=== PATIENT | female | born 1990 | race Caucasian/White ===

== ENCOUNTER 2019-07-20 09:18 | Day surgery (SDC) | payer OTHER ==
[~2019-07-20] VITALS: Ht 170.2 cm; Wt 103.9 kg
[2019-07-20 10:38] VITALS: BP 128/65; PULSE 63; TEMP 98.3
[2019-07-20] MEDS ORDERED: NORCO 325 MG-51 TAB PO (10:42)
[2019-07-20 12:25] VITALS: BP 126/69; PULSE 61; TEMP 97.9
--- NOTE | 2019-07-20 12:25 | NUR ---
Pt returned via cart to [facility]. and daughter present in room. Pt A&O. VSS-see flowsheet. Denies pain or complaints. Requested water only at this time. Side rails up and call light in reach.
[2019-07-20 12:40] VITALS: BP 112/62; PULSE 63
[2019-07-20 12:55] VITALS: BP 117/63; PULSE 67
--- NOTE | 2019-07-20 13:20 | NUR ---
Pt tolerated a snack and water. Able to void without difficulty. VS remain stable-see flowsheet. IV removed and pressure dressing applied to site. Discharge teaching completed, pt and verbalized understanding. After dressing, pt taken via wheelchair to private vehicle for dc home with driving.
== END 2019-07-20 13:20 | disposition home or self-care (01) ==
LOC: SDCO 09:18
DX: N20.1 Calculus of ureter (principal); Z88.1 Allergy status to other antibiotic agents; Z88.2 Allergy status to sulfonamides; Z80.6 Family history of leukemia
CPT/HCPCS: C1769; C2617; J0690; J2704; J3010; J7120; Q9967